=== PATIENT | female | born 1955 | race Caucasian/White ===

== ENCOUNTER 2020-07-16 01:14 | Emergency (ER) | payer SELFPAY ==
[~2020-07-16] VITALS: Ht 157.5 cm; Wt 68.0 kg
[2020-07-16] MEDS ORDERED: MORPHINE SULFATE 4 MG/ML CPJ (NOT FOR IM USE) IV STA (01:52)
[2020-07-16] MEDS ORDERED: ONDANSETRON HCL 4MG/2ML INJ IV STA (01:52)
[2020-07-16] MEDS ORDERED: SODIUM CHLORIDE 0.9% 1,000 ML IV ONE (02:00)
[2020-07-16 02:22] LABS: HEMATOCRIT. 43.9 % (36.0-48.0); HEMOGLOBIN. 14.6 g/dL (12.0-16.0); MEAN CORPUSCULAR VOLUME 87.2 fL (81.0-99.0); MEAN PLATELET VOLUME 7.5 fl (7.4-10.4); PLATELET 253 x1000/uL (130-400); RED BLOOD CELL COUNT 5.03 mill/uL (4.2-5.4); RED CELL DISTRIBUTION WIDTH 12.8 % (11.6-14.6)
[2020-07-16 02:24] LABS: CHLORIDE 107 mEq/L (98-107)
[2020-07-16 02:28] LABS: PROTHROMBIN TIME 10.7 sec (9.6-11.0)
[2020-07-16 02:48] LABS: CLARITY URINE TURBID (CLEAR); COLOR URINE DARK YELLOW (YELLOW); KETONES URINE TRACE (NEGATIVE); LEUKOCYTE ESTERASE URINE TRACE (NEGATIVE); NITRITE URINE NEGATIVE (NEGATIVE); OCCULT BLOOD URINE TRACE (NEGATIVE); PROTEIN URINE NEGATIVE (NEGATIVE); SPECIFIC GRAVITY URINE 1.033 (1.005-1.030)
[2020-07-16] MEDS ORDERED: IOHEXOL-300 100 ML BOTTLE ONE (03:25)
[2020-07-16 05:15] VITALS: BP 132/81
[2020-07-16 07:53] LABS: PLATELET ESTIMATE NORMAL
== END 2020-07-16 05:17 | disposition home or self-care (01) ==
LOC: ER 01:14 → EDBD 01:14 → ER 05:17
DX: R10.31 Right lower quadrant pain (principal); R11.2 Nausea with vomiting, unspecified
CPT/HCPCS: 36415; 74177; 80053; 81003; 83690; 85025; 85610; 93005; 96361; 96374; 96375; 99285; J2270; J2405; J7030; Q9967; Z7610